=== PATIENT | male | born 2000 | race Caucasian/White ===

== ENCOUNTER 2020-08-30 00:43 | Emergency (ER) | payer BC ==
[~2020-08-30] VITALS: Ht 177.8 cm; Wt 125.0 kg
[2020-08-30 00:54] VITALS: TEMP 98.9
[2020-08-30 01:49] VITALS: BP 162/90; PULSE 125
== END 2020-08-30 02:00 | disposition home or self-care (01) ==
LOC: COL.ER 00:43
DX: S01.112A Laceration without foreign body of left eyelid and periocular area, initial encounter (principal); Y04.8XXA Assault by other bodily force, initial encounter